=== PATIENT | male | born 1950 | race Caucasian/White ===

== ENCOUNTER 2018-01-17 06:11 | Inpatient (IN) | payer OTHER ==
[2017-12-30 11:56] VITALS: Ht 172.7 cm; Wt 88.4 kg
--- NOTE | 2017-12-30 12:39 | DIAGNOSTIC IMAGING REPORT ---
CHEST 2 VIEWS ROUTINE CLINICAL HISTORY: Preoperative evaluation. COMPARISON STUDY: Chest radiograph July 24, 2009. FINDINGS: Lung volumes are normal. No pneumothorax or pleural effusion is noted. There is no consolidation or evidence for pulmonary edema. Cardiac size is normal. Mediastinal contours are normal. The appearance of the chest is unchanged. IMPRESSION: No acute cardiopulmonary findings. Electronically signed by: Waylon Khan M.D. 12/30/2017 12:37 PM Dictated Date/Time: 12/30/2017 12:36 PM
[2017-12-30 13:16] LABS: BASO % 0.4 %; BASO ABS # 0.02 K/uL (0-0.2); EOS % 1.3 %; EOS ABS # 0.06 K/uL (0-0.5); HEMATOCRIT 43.9 % (42-52); HEMOGLOBIN 14.8 g/dL (14.0-18.0); IG# 0.05 K/uL (0.00-0.02); LYMPH ABS # 0.72 K/uL (1.2-3.4); MEAN CORPUSCULAR HGB CONC 33.7 g/dl (32-36); MEAN PLATELET VOLUME 9.7 fL (7.4-10.4); MONO % 9.5 %; MONO ABS # 0.43 K/uL (0.11-0.59); NEUT % 71.7 %; NEUT ABS # 3.23 K/uL (1.4-6.5); PLATELET COUNT 214 K/uL (130-400); RED CELL DISTRIBUTION WIDTH CV 13.2 % (11.5-14.5); RED CELL DISTRIBUTION WIDTH SD 45.4 fL (36.4-46.3); WHITE BLOOD COUNT 4.51 K/uL (4.8-10.8)
[2017-12-30 13:37] LABS: INR 0.9 (0.9-1.1); PTT PATIENT 27.1 SECONDS (21.0-31.0)
[2017-12-30 14:34] LABS: ALBUMIN 3.6 gm/dl (3.4-5.0); CALCIUM 8.5 mg/dl (8.5-10.1); CREATININE 1.13 mg/dl (0.60-1.40)
[2017-12-30 14:37] LABS: TOTAL PROTEIN 6.9 gm/dl (6.4-8.2)
--- NOTE | 2018-01-12 08:31 | HISTORY & PHYSICAL EXAMINATION ---
DATE OF ADMISSION: 01/17/2018 CHIEF COMPLAINT: Right knee pain. HISTORY OF PRESENT ILLNESS: A 67-year-old gentleman referred by my partner, Dr. Zarate for surgical treatment of his right knee. He has had a several-year history of increasing right knee pain and discomfort that has gradually just progressed overtime. He has been treated with injections, which provided some temporary relief at best. It has become less successful over time. He describes global pain, but a little bit more medial. The more he walks, the more it hurts. The more he walks, the more he limps. He has a limited walking tolerance. He has nighttime discomfort. He would like to have his right knee fixed. PAST MEDICAL HISTORY: Significant for: 1. Elevated cholesterol. 2. Gastroesophageal reflux disease. 3. Prostate cancer. PAST SURGICAL HISTORY: Include prostate surgery for cancer. ALLERGIES: None. CURRENT MEDICINES: Include: 1. Simvastatin. 2. Omeprazole 20 mg a day. SOCIAL HISTORY: A 67-year-old male. He is . His works at the hospital. He does not smoke. No alcohol intake. FAMILY HISTORY: Noncontributory. REVIEW OF SYSTEMS: Negative for diabetes, neurologic problem, vascular problem, bleeding disorders. No chest pain or shortness of breath. No history of DVT or PE. PHYSICAL EXAMINATION: GENERAL: Reveals a healthy, pleasant middle-aged male. Looks to be in pretty good health. HEENT: Benign. NECK: Supple. No lymphadenopathy. LUNGS: Clear to auscultation. HEART: Regular rate and rhythm. ABDOMEN: Soft, nontender, nondistended. EXTREMITIES: Grossly neurovascularly intact except as follows: Examination of the right knee reveals the patient walks with a bit of a limp. He has got varus alignment to his knee. When he weight bears, he does have a varus thrust. He is tender over the medial joint line. He has got bony hypertrophy medially. Small knee effusion. Range of motion is 5-120 degrees. No instability. X-RAYS: X-ray of the right knee reviewed. It shows advanced right knee DJD. He has got complete loss of his medial joint space. Some pretty small osteophytes off the medial femoral condyle and medial tibial plateau. ASSESSMENT: A 67-year-old male with advanced right knee degenerative joint disease. He has failed conservative treatment and would like to have his right knee replaced. PLAN: We discussed treatment options. We are going to proceed with right knee replacement. The risks and benefits of this procedure were explained to the patient including but not limited to DVT, PE, , infection, neurological injury, vascular injury, bleeding problem, pain, limited range of motion, stiffness, failure to relieve symptoms, incomplete relief of symptoms, need for further surgery in future, fracture, leg length inequality, nerve palsy, need for blood transfusion, etc. The patient understands and desires. Informed consent was obtained. As far as discharge plans, he is planning to be discharged to home using [facility] home health program.
[~2018-01-17] VITALS: Ht 172.7 cm; Wt 88.4 kg
[~2018-01-17 06:11] MED LIST: ACETAMINOPHEN 500 MG TAB PO SCH; BUPIVACAINE LIPOSOME 266 MG, BUPIVACAINE/EPINEPHRINE INJ 50 ML, SODIUM CHLORIDE 0.9% PF... INFIL SCH; CEFAZOLIN 2000MG IV PUSH 15 ML IV SCH; FAMOTIDINE 20 MG TAB PO SCH; GABAPENTIN 300 MG CAP PO SCH; LACTATED RINGER'S 1000ML 1,000 ML IV SCH; LACTATED RINGER'S 1000ML IV SCH; METOCLOPRAMIDE HCL 10 MG TAB PO SCH; PRLSR20 PO; SCOPOLAMINE 1.5 MG TDSY TD SCH; SIMV20TA2 PO; TRANEXAMIC ACID INJ 1,000 MG x 1 Bag Intra-Op IV SCH
--- NOTE | 2018-01-17 06:49 | History & Physical Bridge Note ---
H&P Re-Evaluation Bridge Note: I have examined the patient, reviewed the History & Physical and in the interval since the performance of the History & Physical I have noted the following changes of clinical significance: No changes noted
[2018-01-17 07:00] VITALS: BP 139/79; PULSE 58; TEMP 36.6; O2SAT 93
[2018-01-17] MEDS ORDERED: LIDOCAINE HCL 2% 2 ML VIAL (20MG/ML) ONE (07:23)
[2018-01-17] MEDS ORDERED: PROPOFOL IV EMULSION 10 MG/ML 20 ML VIAL ONE ×2 (07:23→09:18)
[2018-01-17] MEDS ORDERED: MIDAZOLAM HCL 1 MG/ML 2ML VIAL ONE (07:23)
[2018-01-17] MEDS ORDERED: FENTANYL CITRATE INJ 50 MCG/1 ML 2 ML VIAL ONE (07:24)
[2018-01-17] MEDS ORDERED: BUPIVACAINE 0.5 % 5 MG/1 ML PF 10ML VIAL ONE (07:32)
[2018-01-17] MEDS ORDERED: BUPIVACAINE LIPOSOME 1/3% 266 MG/20 ML VIAL ONE (08:50)
[2018-01-17] MEDS ORDERED: SODIUM CHLORIDE 0.9% PF 50 ML VIAL ONE (08:50)
[2018-01-17] MEDS ORDERED: BUPIVACAINE 0.25% 30 ML VIAL ONE (08:50)
[2018-01-17] MEDS ORDERED: DEXAMETHASONE SOD INJ 4 MG/ML VIAL ONE (09:16)
[2018-01-17] MEDS ORDERED: ONDANSETRON INJ 2 MG/ML 2 ML VIAL ONE (09:16)
[2018-01-17] MEDS ORDERED: EpHEDrine SULFATE 50MG/5ML SYR ONE (09:42)
[2018-01-17] MEDS ORDERED: EpHEDrine SULFATE INJ 50 MG/ML AMP IV PRN (10:00)
[2018-01-17] MEDS ORDERED: ONDANSETRON INJ 2 MG/ML 2 ML VIAL IV PRN ×2 (10:00→11:00)
[2018-01-17] MEDS ORDERED: ATROPINE SULFATE 0.1 MG/ML 5ML SYR IV PRN (10:00)
[2018-01-17] MEDS ORDERED: FENTANYL CITRATE INJ 50 MCG/1 ML 2 ML VIAL IV PRN (10:00)
[2018-01-17] MEDS: BACITRACIN 50000 UNIT VIAL ONE ×2 (10:13→10:14)
--- NOTE | 2018-01-17 10:57 | [facility] Post Operative Brief Note ---
Immediate Operative Summary Operative Date January 17, 2018. Pre-Operative Diagnosis Right Knee Degenerative Joint Disease Post-Operative Diagnosis Same as preop Procedure(s) Performed Right Total Knee Arthroplasty Surgeon Dr. William Videotape Sales Representative Surgeon(s) Cali Carrillo PA-C Estimated Blood Loss 50 ml Findings Consistent with Post-Op Diagnosis Fluids (cc crystalloids) 1700 cc Specimens A. Right Knee Bone and Tissue Drains None Anesthesia Type MAC Spinal Regional Complication(s) none Disposition Accompanied Pt To Recover: yes Disposition: Recovery Room / PACU Overlapping Procedure I was present for: the critical portions of procedure. I was immediately available: during the entire case
[2018-01-17] MEDS ORDERED: HYDROmorphone INJ 0.5 MG/0.5 ML SYR IV PRN (11:00)
[2018-01-17] MEDS ORDERED: TAMSULOSIN HCL 0.4 MG CAP PO PRN (11:00)
[2018-01-17] MEDS ORDERED: DiphenhydrAMINE HCL 50 MG/ML VIAL IV PRN (11:00)
[2018-01-17] MEDS ORDERED: ALUMINUM/MAGNESIUM/SIMETH (MAALOX MAX) 30 ML UDC PO PRN (11:00)
[2018-01-17] MEDS ORDERED: SILVER SULFADIAZINE 1% CR 50 GM JAR EXT PRN (11:00)
[2018-01-17] MEDS ORDERED: ZOLPIDEM TARTRATE 5 MG TAB PO PRN (11:00)
[2018-01-17] MEDS ORDERED: METOCLOPRAMIDE HCL INJ 5 MG/ML 2 ML VIAL IV PRN (11:00)
[2018-01-17] MEDS ORDERED: MAGNESIUM HYDROXIDE SUSP 30 ML UDC PO PRN (11:00)
[2018-01-17] MEDS ORDERED: BISACODYL 10 MG SUPP PR PRN (11:00)
--- NOTE | 2018-01-17 11:37 | DIAGNOSTIC IMAGING REPORT ---
RIGHT KNEE 2 VIEWS History: Right total knee arthroplasty. Degenerative arthritis. Postop. FINDINGS: The patient is status post a right total knee arthroplasty. The hardware is intact. No fracture or dislocation. Skin bryce are in place. IMPRESSION: Right total knee arthroplasty. No evidence for hardware complication. Electronically signed by: Burak Patel M.D. 01/17/2018 11:35 AM Dictated Date/Time: 01/17/2018 11:35 AM
--- NOTE | 2018-01-17 11:48 | Anesthesiology Progress Note ---
Anesthesia Post Op Note Date & Time January 17, 2018 at 11:48 Vital Signs Pain Intensity: 0 Vital Signs Past 12 Hours Date Time Temp Pulse Resp B/P (MAP) Pulse Ox O2 Delivery O2 Flow Rate FiO2 01/17/18 11:42 36.4 01/17/18 11:41 118/59 01/17/18 11:40 56 16 97 01/17/18 11:40 57 01/17/18 11:36 120/68 01/17/18 11:35 55 16 01/17/18 11:35 55 16 97 01/17/18 11:31 121/60 01/17/18 11:30 56 11 97 01/17/18 11:30 56 11 01/17/18 11:26 119/59 01/17/18 11:25 57 11 96 01/17/18 11:25 56 11 01/17/18 11:21 123/63 01/17/18 11:20 60 14 97 01/17/18 11:20 61 14 01/17/18 11:16 121/59 01/17/18 11:15 54 16 97 01/17/18 11:15 55 16 01/17/18 11:11 119/61 01/17/18 11:10 56 13 97 01/17/18 11:10 56 13 01/17/18 11:06 125/62 01/17/18 11:05 55 14 97 01/17/18 11:05 55 14 01/17/18 11:02 120/61 01/17/18 11:00 36 56 16 120/61 99 Nasal Cannula 3 01/17/18 07:00 36.6 58 18 139/79 93 Room Air Notes Mental Status: alert / awake / arousable, participated in evaluation Pt Amnestic to Procedure: Yes Nausea / Vomiting: adequately controlled Pain: adequately controlled Airway Patency, RR, SpO2: stable & adequate BP & HR: stable & adequate Hydration State: stable & adequate Neuraxial Anesthesia: was administered, sensory block is resolving Anesthetic Complications: no major complications apparent
[2018-01-17 12:30] VITALS: BP 134/74; PULSE 56; TEMP 36.4; O2SAT 95
--- NOTE | 2018-01-17 12:31 | OPERATIVE REPORT ---
DATE OF OPERATION: 01/17/2018 SURGEON: Don William M.D. BAND EDGER: Henry Carrillo PA-C. PREOPERATIVE DIAGNOSIS: Right knee degenerative joint disease. POSTOPERATIVE DIAGNOSIS: Right knee degenerative joint disease. PROCEDURE PERFORMED: Right cemented posterior stabilized total knee arthroplasty. COMPLICATIONS: None. ESTIMATED BLOOD LOSS: 50 mL FLUID REPLACEMENT: 1700 mL of crystalloid fluid replacement. ANESTHESIA: Spinal with adductor canal block. DRAINS: None. SPECIMENS: Right knee sent for pathology. OPERATIVE INDICATIONS: The patient is a 67-year-old gentleman who is referred for surgical treatment of his right knee by my partner Dr. Zarate. He has had a several year history of increased right knee pain and discomfort that has become less responsive to conservative care. X-rays were advanced medial compartment arthritis. The patient elected to proceed with operative treatment. OPERATIVE FINDINGS: Operative findings revealed advanced right knee DJD. He had grade 4 [id number] disease of the medial femoral condyle and medial tibial plateau. He had a varus alignment to his knee. Small osteophytes medially. Moderate size joint effusion. OPERATIVE IMPLANTS: Operative implants consisted of: 1. Biomet Vanguard size 72.5 right posterior bifemoral component. 2. Biomet size 75 tibial tray. 3. A 12 mm posterior stabilized polyethylene insert. 4. A 34 x 8.5 all poly patella. OPERATIVE PROCEDURE: The patient taken to the operating room, identified and placed on the operating table in supine position. All contact areas were appropriately padded. IV antibiotics followed by anesthesia team. A spinal anesthetic and adductor canal block had been provided in the holding area. Levi catheter was placed in sterile fashion. Right thigh tourniquet was then placed and the right lower extremity was then prepped and draped in usual sterile fashion. The right leg was elevated and exsanguinated with Esmarch and tourniquet placed at 300 mmHg. An anterior approach of the right knee was then performed through a longitudinal incision centered over the patella. Sharp dissection was carried through subcutaneous tissue down to the level of the extensor mechanism. A medial parapatellar arthrotomy incision was made. Some subperiosteal dissection was carried out medially. The fat pad was resected from beneath the patellar tendon. Lateral patellofemoral ligament was released. Patella was everted and the knee was flexed. The osteophytes were taken off the distal femur. The ACL and PCL were then released from the distal femur and the tibia subluxated anteriorly. External tibial alignment jig was then placed in the anterior face of the tibia and adjusted 14 mm medially. Proximal tibial cut was made to remove about a millimeter or 2 of bone from most deficient aspect of the medial tibial plateau. Some osteophytes were taken off medial and posteromedially. Tibia was sized to a size 75. Attention was then drawn to the femur. The distal femur was entered with a sharp drill. Intramedullary canal was suctioned. A right 6 degree valgus cutting guide was placed. Distal femoral cutting block was pinned in place. Distal femoral cut was made to take an additional 3 mm of bone off the distal femur. The femur was then sized to a size 72.5. I did downsize this an entire size due to the narrow medial and lateral dimensions. The AP cutting block was pinned parallel to the epicondylar axis, which was 3 degrees of external rotation. The anterior cut, anterior chamfer, posterior cut, posterior chamfer cuts were made. Box cutting guide was placed and adjusted slight lateral and the box cut was made. The knee was flexed. The remnants of the medial and lateral menisci were excised. The osteophytes were taken off the posterior aspect of the femur. Trial femoral component was placed. Tibial tray was pinned in maximum external rotation and drill and stem punch were used to create defect in proximal tibia for the tibial tray. The knee was then trialed and the 12 mm insert fit most appropriately. Attention was then drawn to the patella. The patella was cleaned of all soft tissues. Patellar thickness measured 23 mm in thickness was cut down to 14. It was sized to a size 34 patella. Lug holes were drilled for 34 patella. Lateral osteophyte was removed. Patella button was placed. Knee was taken through range of motion and patella tracked nicely with no thumbs test. Attention was then drawn toward placement of the permanent components. All trial components were removed. A bone plug was placed in the distal femur to limit blood loss. A double batch of Palacos G cement was mixed. A right size 72.5 posterior bifemoral component, size 75 tibial tray, a 12-mm posterior stabilized polyethylene insert, and a 34 x 8.5 all poly patella then cemented in place. Knee was brought in full extension until the cement had hardened. A final cement check was then performed. Pericapsular tissues were injected with a total of 100 mL of a combination of 20 mL of Exparel, 30 mL of normal saline, 50 mL of 0.25% Marcaine with epinephrine. The patient did receive 1 gram of tranexamic acid. The tourniquet was then let down for final tourniquet time of 56 minutes. Hemostasis was assured with use of electrocautery. The wound was once again irrigated. The extensor mechanism was then closed with combination of #1 PDS suture and #1 Vicryl suture in a [id number] fashion. Extensor mechanism was checked and found to be intact. Subcutaneous tissues were then closed with #2 Dexon suture in a buried interrupted fashion. Skin was closed with skin bryce. Leg was then cleaned and dried. Sterile dressing composed of Xeroform, 4 x 4's, sterile cast padding and Alin bandage were applied. The patient then transferred to the recovery room in stable condition. The patient tolerated the procedure well with no complication. All needle and sponge counts were correct at the end of the operation. I attest to the content of the Intraoperative Record and any orders documented therein. Any exception s are noted below.
[2018-01-17 13:19] VITALS: BP 127/74; PULSE 65; TEMP 37; O2SAT 94
[2018-01-17] MEDS: D5W AND 1/2NSS + 20MEQ KCL 1,000 ML IV SCH ×2 (13:50→23:53)
[2018-01-17] MEDS: KETOROLAC TROMETHAMINE 15 MG/ML VIAL IV. SCH ×2 (13:52→19:39)
[2018-01-17 14:06] VITALS: BP 133/73; PULSE 61; TEMP 36.4; O2SAT 95
--- NOTE | 2018-01-17 14:23 | PROGRESS NOTE ---
DATE: 01/17/2018 SUBJECTIVE: A 67-year-old gentleman postop from a right knee replacement. He is doing well. He does not have any feeling in his leg yet. No chest pain, no shortness of breath. Not feeling dizzy or lightheaded. OBJECTIVE: VITAL SIGNS: Temperature is 37.0. Stable. GENERAL: Examination reveals a healthy and pleasant middle-aged male. He is sitting up in bed and talking to his . He looks pretty comfortable. RESPIRATORY: Lungs are clear to auscultation. CARDIOVASCULAR: Heart has a regular rate and rhythm. GASTROINTESTINAL: Abdomen is soft, nontender, nondistended. EXTREMITIES: Grossly neurovascularly intact except as follows: Examination of his right leg reveals it to be well aligned. Dressing is clean, dry, and intact. He has no significant sensory or motor function yet. He does have good distal pulse with brisk refill. IMAGING: X-rays of the right knee from recovery room reviewed. It shows a right cemented posterior stabilized total knee arthroplasty. Components are in good position. No signs of problems. ASSESSMENT: A 67-year-old gentleman postop from a right knee replacement, doing pretty well. His pain is controlled. The spinal is still in effect. PLAN: 1. DVT prophylaxis including thigh-high TEDs, SCDs, and aspirin twice a day. 2. PT/OT. Weight bear as tolerated. Right total knee protocol. 3. Pain control. Doing well with current pain regimen. Will obviously have to add meds as his spinal wears off. 4. IV antibiotics x24 hours. 5. Disposition: Plan to discharge to home with some home health once adequately recovered.
[2018-01-17 14:59] VITALS: BP 151/73; PULSE 70; TEMP 36.5; O2SAT 94
[2018-01-17] MEDS: CHECK SCOPOLAMINE PATCH PLACEMENT SCH ×2 (15:45→23:54)
[2018-01-17] MEDS: ACETAMINOPHEN 500 MG TAB PO SCH ×2 (16:45→23:55)
[2018-01-17] MEDS ORDERED: TRANEXAMIC ACID INJ 1,000 MG in SODIUM CHLORIDE 0.9% 100ML 100 ML IV ONE (17:00)
[2018-01-17] MEDS: CEFAZOLIN IV 2,000 MG in SYRINGE 0 ML IV SCH (17:03)
[2018-01-17] MEDS: FERROUS GLUCONATE 324 MG TAB PO SCH (18:23)
[2018-01-17] MEDS: ASPIRIN 81 MG ECTAB PO SCH (21:04)
[2018-01-17] MEDS: TAPENTADOL ER 50 MG TABCR PO SCH (21:04)
[2018-01-17] MEDS: DOCUSATE SODIUM 100 MG CAP PO SCH (21:05)
[2018-01-17] MEDS: SENNA 8.6 MG TAB PO SCH (21:05)
[2018-01-17] MEDS: SIMVASTATIN 20 MG TAB PO SCH (21:05)
[2018-01-17 23:36] VITALS: BP 128/75; PULSE 77; TEMP 36.7; O2SAT 93
[2018-01-18] VITALS (8 sets, daily range): BP systolic 97–148; BP diastolic 52–73; PULSE 47–86; TEMP 36.5–37; O2SAT 95–98
[2018-01-18] MEDS: CEFAZOLIN IV 2,000 MG in SYRINGE 0 ML IV SCH (01:50)
[2018-01-18] MEDS: KETOROLAC TROMETHAMINE 15 MG/ML VIAL IV. SCH ×4 (01:51→19:35)
[2018-01-18 06:45] LABS: HEMATOCRIT 35.5 % (42-52); HEMOGLOBIN 12.3 g/dL (14.0-18.0); MEAN CELL VOLUME 92.9 fL (80-100); MEAN CORPUSCULAR HEMOGLOBIN 32.2 pg (25-34); MEAN CORPUSCULAR HGB CONC 34.6 g/dl (32-36); MEAN PLATELET VOLUME 9.1 fL (7.4-10.4); PLATELET COUNT 203 K/uL (130-400); RED CELL DISTRIBUTION WIDTH CV 13.1 % (11.5-14.5); RED CELL DISTRIBUTION WIDTH SD 43.9 fL (36.4-46.3); WHITE BLOOD COUNT 9.25 K/uL (4.8-10.8)
[2018-01-18 07:15] LABS: CALCIUM 8.2 mg/dl (8.5-10.1); CREATININE 1.03 mg/dl (0.60-1.40); POTASSIUM 4.1 mmol/L (3.5-5.1)
--- NOTE | 2018-01-18 07:54 | Anesthesiology Progress Note ---
Anesthesia Post Op Note Date & Time January 18, 2018 at 07:53 Vital Signs Pain Intensity: 0.0 Vital Signs Past 12 Hours Date Time Temp Pulse Resp B/P (MAP) Pulse Ox O2 Delivery O2 Flow Rate FiO2 01/18/18 07:22 36.9 67 17 115/71 (86) 96 Room Air 01/18/18 06:51 60 97/52 (67) 96 Room Air 01/18/18 06:50 47 01/18/18 03:56 37.0 83 16 139/66 (90) 98 Room Air 01/17/18 23:55 Room Air 01/17/18 23:36 36.7 77 16 128/75 (92) 93 Room Air Notes Mental Status: alert / awake / arousable, participated in evaluation Pt Amnestic to Procedure: Yes Nausea / Vomiting: adequately controlled Pain: adequately controlled Airway Patency, RR, SpO2: stable & adequate BP & HR: stable & adequate Hydration State: stable & adequate Neuraxial Anesthesia: sensory block resolved Anesthetic Complications: no major complications apparent
[2018-01-18] MEDS: CHECK SCOPOLAMINE PATCH PLACEMENT SCH ×3 (08:14→23:14)
[2018-01-18] MEDS: ACETAMINOPHEN 500 MG TAB PO SCH ×3 (08:15→23:14)
[2018-01-18] MEDS ORDERED: PANTOprazole SOD 40 MG TAB PO SCH (09:00)
[2018-01-18] MEDS: MULTIVITAMIN TAB PO SCH (09:59)
[2018-01-18] MEDS: FERROUS GLUCONATE 324 MG TAB PO SCH ×3 (09:59→17:33)
[2018-01-18] MEDS: DOCUSATE SODIUM 100 MG CAP PO SCH ×2 (09:59→20:17)
[2018-01-18] MEDS: PANTOprazole SOD 40 MG TAB PO SCH (09:59)
[2018-01-18] MEDS: ASPIRIN 81 MG ECTAB PO SCH ×2 (09:59→20:16)
[2018-01-18] MEDS: D5W AND 1/2NSS + 20MEQ KCL 1,000 ML IV SCH (10:00)
[2018-01-18] MEDS: TAPENTADOL ER 50 MG TABCR PO SCH ×2 (10:03→20:16)
--- NOTE | 2018-01-18 13:39 | PROGRESS NOTE ---
DATE: 01/18/2018 SUBJECTIVE: This is a 67-year-old gentleman postop day 1 from right knee replacement, doing pretty well. His pain is controlled. He did have an episode where he got lightheaded and he laid down and it all went away. No chest pain or shortness of breath. Not feeling dizzy or lightheaded. OBJECTIVE: VITAL SIGNS: Temperature 36.6. Vital signs stable. PHYSICAL EXAMINATION: GENERAL: Physical examination shows a healthy, pleasant, middle-aged male. He is sitting up in his bedside chair and looks pretty comfortable. LUNGS: Clear to auscultation. HEART: Regular rate and rhythm. ABDOMEN: Soft, nontender, nondistended. EXTREMITY EXAMINATION: Grossly neurovascularly intact except as follows: Examination of the right leg reveals the dressing to be clean, dry, and intact. It has been reinforced. There is no drainage on the wrap. He can dorsiflex and plantarflex his foot appropriately. He is neurologically intact. LABORATORIES: Hemoglobin 12.3. Hematocrit 35.5. Electrolytes are stable. ASSESSMENT: This is a 67-year-old gentleman postop day 1 from right total knee replacement, doing pretty well. He has got a little bit dizzy earlier, but doing better. His pain is controlled. He is neurologically intact. PLAN: 1. DVT prophylaxis including thigh-high TEDs, SCDs, and aspirin twice a day. 2. PT/OT. Weightbear as tolerated. Right total knee protocol. 3. Pain control, doing pretty well with current pain regimen. 4. Disposition: He is hoping to be discharged to home with some home health once adequately recovered.
[2018-01-18] MEDS: SENNA 8.6 MG TAB PO SCH (20:17)
[2018-01-18] MEDS: SIMVASTATIN 20 MG TAB PO SCH (20:17)
[2018-01-18] MEDS ORDERED: ACET-24 PO (20:49)
[2018-01-18] MEDS ORDERED: ASPI-320 PO (20:49)
[2018-01-18] MEDS ORDERED: RXC5 PO (20:49)
--- NOTE | 2018-01-18 20:51 | Discharge Instructions ---
Discharge Instructions Date of Service January 18, 2018. Admission Reason for Admission: Right Knee Degenerative Joint Disease Discharge Discharge Diagnosis / Problem: Right Knee Replacement Discharge Goals Goal(s): Decrease discomfort, Improve function, Increase independence, Improve disease control, Therapeutic intervention Activity Recommendations Activity Limitations: per Instructions/Follow-up section Weightbearing Status: Right weightbearing . Instructions / Follow-Up Instructions / Follow-Up ACTIVITY RECOMMENDATIONS: Physical Therapy: * You will go to physical therapy three times each week for four to six weeks after your surgery in order to regain your knee range of motion and to retrain your knee to work properly. * It is just as important to make sure you are getting your knee perfectly straight as it is to regain your knee bend. * Taking a pain pill an hour before therapy can help you have a more productive and comfortable therapy session. Home Exercise: * You were shown a series of exercises (heel props, heel slides, etc.) in the hospital. Do these exercises three to four times each day including the exercises you were shown in physical therapy. Walking: * Get up and walk several times each day. For the first four weeks, try not to stand or walk for more than one hour at a time. If you do stand or walk for more than one hour, you will not hurt anything, but your knee and leg will likely swell. * As you feel comfortable, you may change from the walker or crutches to a cane and then to independent walking. MEDICATIONS: New Medicine: * You will likely be taking one or more of these medications: 1. Oxycodone - A quick and shorter-acting pain medication. Take one to two tablets every four to six hours to lessen your pain. 2. Aspirin - Thins your blood to lessen the chance of forming a blood clot. * The most common side effects of pain medicine and iron are nausea and constipation. If nausea or constipation is too much of a problem or if you have any questions about your new medicines or doses, call [facility] at [phone]. We will try to help you manage these issues. VERY IMPORTANT TO READ AND REVIEW" Pain: * The immediate post-operative period after knee replacement surgery is often quite painful. * You are given a prescription for pain medicine. You should take it, as directed, when you need it, especially before physical therapy and before going to bed. Pain that interferes with sleep is very common and can last several months. * You will likely need pain medicine for the first four to six weeks. It will not stop all of the pain. The pain will lessen and as you feel better, you may change to milder pain medicine such as Tylenol. * The most common side effects of pain medicine are nausea and constipation, so don't take more than you need. SPECIAL CARE INSTRUCTIONS: TEDs/Elastic Stockings: * The white elastic stockings help limit swelling and prevent blood clots from forming in your legs. The more you wear them, the more they work. * Wear them for six weeks after knee replacement surgery and four weeks after partial knee replacement. Prevention of Infection: * Take antibiotics one hour before any dental cleaning, dental work, urological procedure, gastrointestinal procedure or any invasive surgery in order to prevent your new joint from getting infected. * You may get the antibiotics from the doctor performing the procedure or you may call our office at before and we will call in a prescription to the pharmacy of your choice. Things to Watch For: * Drainage from the incision site that occurs more than one week after your surgery. * Severely increased knee/leg pain or swelling. * Increased redness at the incision site. * Fever above 102 degrees Fahrenheit. * Unusual chest pain or shortness of breath. * Unusual pain or burning with urination. Call [facility] at with any of the above problems or if you have any questions about your medicines or recovery. FOLLOW UP VISIT: Make an appointment to see your doctor for approximately two weeks after surgery for a progress check and staple removal by calling the office at . Current Hospital Diet Patient's current hospital diet: Regular Diet Discharge Diet Recommended Diet: Regular Diet Procedures Procedures Performed: Right Total Knee Arthroplasty Pending Studies Studies pending at discharge: no Medical Emergencies . Who to Call and When: Medical Emergencies: If at any time you feel your situation is an emergency, please call [phone] immediately. . Non-Emergent Contact Non-Emergency issues call your: Surgeon . "Provider Documentation" section prepared by Don William. .
[2018-01-19] MEDS: KETOROLAC TROMETHAMINE 15 MG/ML VIAL IV. SCH ×2 (01:35→07:43)
[2018-01-19] MEDS: OXYCODONE HCL IR 5 MG TAB (IMMEDIATE RELEASE) PO PRN ×2 (06:24→11:24)
[2018-01-19] MEDS: CHECK SCOPOLAMINE PATCH PLACEMENT SCH (07:43)
[2018-01-19] MEDS: ACETAMINOPHEN 500 MG TAB PO SCH (07:44)
--- NOTE | 2018-01-19 07:58 | PROGRESS NOTE ---
DATE: 01/19/2018 SUBJECTIVE: A 67-year-old gentleman, postop day 2, from right knee replacement. She is doing pretty well, a little frustrated that he cannot lift his leg. No chest pain, no shortness of breath. No further dizziness or lightheadedness. OBJECTIVE: VITAL SIGNS: Temperature 36.5. Stable. GENERAL: A healthy and pleasant middle-aged male. He is sitting up in bed, looks comfortable. EXTREMITIES: Examination of the right leg reveals the dressing to be clean, dry, and intact. His leg is well aligned. Minimal swelling. He can dorsiflex and plantarflex his foot appropriately. He is neurologically intact. ASSESSMENT: A 67-year-old gentleman postop day 2 from right knee replacement, doing well. Pain is reasonably well controlled. His inability to lift his leg is normal at this point. PLAN: 1. DVT prophylaxis including thigh high TEDs, SCDs, and aspirin twice a day. 2. PT/OT. Weight bear as tolerated. Right total knee protocol. 3. Pain control, doing well with current pain regimen. 4. Disposition: Plan to discharge to home with some home health later today.
[2018-01-19 07:59] VITALS: BP 137/81; PULSE 72; TEMP 36.7; O2SAT 97
[2018-01-19] MEDS: FERROUS GLUCONATE 324 MG TAB PO SCH (08:48)
[2018-01-19] MEDS: MULTIVITAMIN TAB PO SCH (08:48)
[2018-01-19] MEDS: ASPIRIN 81 MG ECTAB PO SCH (08:49)
[2018-01-19] MEDS: PANTOprazole SOD 40 MG TAB PO SCH (08:49)
[2018-01-19] MEDS: DOCUSATE SODIUM 100 MG CAP PO SCH (08:49)
[2018-01-19] MEDS: TAPENTADOL ER 50 MG TABCR PO SCH (08:51)
[2018-01-19 09:30] VITALS: BP 137/81; PULSE 72; TEMP 36.7; O2SAT 97
--- NOTE | 2018-01-26 14:37 | Discharge Summary ---
Orthopedic Discharge Summary Admission Date/Reason January 17, 2018 at 06:35 Right Knee Degenerative Joint Disease. Discharge Date/Disposition January 19, 2018 Home with services Diagnosis Principal Diagnosis: RIGHT KNEE DEGENERATIVE JOINT DISEASE Secondary Diagnoses/Problems: 1) ELEVATED CHOLESTEROL 2) GERD 3) PROSTATE CANCER Procedure(s) Performed RIGHT TOTAL KNEE ARTHROPLASTY Consultations NONE Medication Reconciliation New Medications: Acetaminophen (Sb Non-Aspirin Extra Stre) 500 Mg Tab 1000 MG PO Q8H for 30 Days, #180 TAB Take 3 times per day to lessen pain. Aspirin (Aspirin EC Low Dose) 81 Mg Ectab 81 MG PO BID for 45 Days, #90 Take to prevent blood clots. Oxycodone HCl (Oxycodone HCl) 5 Mg Tab 5-10 MG PO Q6H PRN for Pain for 30 Days, #40 TAB Take as needed for Pain. Continued Medications: Omeprazole (Prilosec) 20 Mg Capcr 20 MG PO QAM, CAP Simvastatin (Zocor) 20 Mg Tab 20 MG PO QPM, 0 Refills Admission Physical Exam As per Admitting History & Physical. Hospital Course The patient was admitted to the hospital on 01/17/2018 and underwent a right total knee arthroplasty. He tolerated the procedure well and there were no complications. He was then transferred to PACU and later to the orthopedic floor for further care. He was given Ancef for antibiotic prophylaxis. He was given Aspirin, ISAURO stocking and SCDs for DVT prophylaxis. His vital signs were monitored throughout the hospital stay and remained stable. By postoperative day 2 his pain was well controlled with oral medications. He was tolerating physical therapy and tolerating a regular diet. He was then discharged to home with home health services. He was given printed discharge instructions as well as his prescriptions. He may continue his home medications. He can continue physical therapy, ISAURO stockings and be weight bearing as tolerated. He is to follow up with Dr. William in 10-14 days or sooner if there are any concerns. He may call the office at [phone]. Discharge Instructions Please refer to the electronic Patient Visit Report (Discharge Instructions) for additional information.
== END 2018-01-19 12:32 | disposition home health service (06) | DRG 470 ==
LOC: C.ACU 06:11 → C.3E 06:35 → UNDOADMIN 06:45 → ENRESERV 11:26
PROVIDERS: ADMIT Orthopaedic Surgery Sports Medicine; ATTEND Orthopaedic Surgery Sports Medicine
PROC: 0SRC0J9 Replacement of Right Knee Joint with Synthetic Substitute, Cemented, Open Approach (ICD-10-PCS; principal; 2018-01-17 09:05)
DX: M17.11 Unilateral primary osteoarthritis, right knee (principal); E78.5 Hyperlipidemia, unspecified; K21.9 Gastro-esophageal reflux disease without esophagitis; Z85.46 Personal history of malignant neoplasm of prostate